=== PATIENT | female | born 1955 | race Caucasian/White ===

== ENCOUNTER 2017-10-29 21:22 | Emergency (ER) | payer OTHER ==
[~2017-10-29] VITALS: Ht 162.6 cm; Wt 58.9 kg
[~2017-10-29 21:22] MED LIST: AZIT250T94 PO; D-ME118S6 PO
[2017-10-29 21:26] VITALS: Ht 162.6 cm; Wt 58.9 kg
[2017-10-29] MEDS ORDERED: KETOROLAC 30 MG INJ IM STA (22:38)
--- NOTE | 2017-10-30 01:01 | ERD ---
ER Documentation Chief Complaint Chief Complaint low back pain extending to left leg x 1 week, denies injury HPI This is a 61-year-old female who presents the emergency department today complaining of left-sided back pain and pain that goes down into her leg. States that she has had this back problem for a long time was told that she has a herniated disc and a nerve problem and she has had an MRI. States she is waiting for authorization for injections for her pain. States she has taken Tylenol and Advil. The leg pain is new. Denies any fevers or chills, loss of bowel or bladder control. ROS All systems reviewed and are negative except as per history of present illness. Medications Home Meds Active Scripts Acetaminophen* (Tylophen*) 500 Mg Capsule, 1 CAP PO Q6H Y for PAIN AND OR ELEVATED TEMP, #30 CAP Prov:DAVID HUSTON PA-C 10/30/17 Tramadol HCl (Tramadol HCl) 50 Mg Tablet, 50 MG PO Q4 Y for PAIN, #20 TAB Prov:DAVID HUSTON PA-C 10/30/17 Dextromethorphan Hb-Promethazine Hcl (Promethazine DM Syrup) 180 Ml Syrup, 10 ML PO Q6H Y for COUGH, #120 OZ Prov:IVAN WHITNEY MD 12/26/15 Azithromycin* (Zithromax*) 250 Mg Tablet, 250 MG PO .ZPACK DIRECTED, #6 TAB TAKE 500 MG (2 TABS) THE FIRST DAY THEN 250 MG (1 TAB) DAYS 2-5 Prov:IVAN WHITNEY MD 12/26/15 Reported Medications [None] No Conflict Check 08/30/15 Allergies Allergies: Coded Allergies: Sulfa (Sulfonamide Antibiotics) (Unverified Allergy, Unknown, 08/30/15) BREATHING PROBLEMS PMhx/Soc History of Surgery: Yes (L BREASE BIOPSY, UMB HERNIA REPAIR, VAG BIOPSY) Anesthesia Reaction: No Hx Neurological Disorder: No Hx Respiratory Disorders: No Hx Cardiac Disorders: Yes (cholesterol NO MED BORDERLINE) Hx Psychiatric Problems: No Hx Miscellaneous Medical Probl: No Hx Alcohol Use: No Hx Substance Use: No Hx Tobacco Use: No Smoking Status: Never smoker Physical Exam Vitals Vital Signs Date Time Temp Pulse Resp B/P Pulse Ox O2 Delivery O2 Flow Rate FiO2 10/29/17 21:26 98.2 83 20 160/90 100 Physical Exam Const: NAD Head: Atraumatic Eyes: Normal Conjunctiva ENT: Normal External Ears, Nose and Mouth. Neck: Full range of motion..~ No meningismus. Resp: Clear to auscultation bilaterally Cardio: Regular rate and rhythm, no murmurs Abd: Soft, non tender, non distended. Normal bowel sounds Skin: No petechiae or rashes Back: Lumbar spine no midline tenderness. Left-sided paraspinal tenderness. Positive straight leg raise. Pulses 2+. Distal neurovascularly intact. No erythema or warmth, calf tenderness. Ext: No cyanosis, or edema Neur: Awake and alert Psych: Normal Mood and Affect Results 24 hrs Current Medications Medications (Trade) Dose Ordered Sig/Jane Route PRN Reason Start Time Stop Time Status Last Admin Dose Admin Ketorolac Tromethamine (Toradol) 30 mg ONCE STAT IM 10/29/17 22:38 10/29/17 22:39 DC 10/29/17 22:44 DIAGNOSTIC IMAGING REPORT Patient: NOEMY JONES : 1955 Age: 61 Sex: F MR #: [id number] DOS: 10/30/17 0000 Ordering MD: DAVID HUSTON PA-C Location: [facility] Room/Bed: PROCEDURE: ULTRASOUND LEFT LOWER EXTREMITY VENOUS CLINICAL INDICATION: 61-year-old female with left lower extremity pain. TECHNIQUE: Multiple sonographic images of the left lower extremity deep venous system was obtained utilizing grayscale, color-flow, compressive sonography and doppler imaging with augmentation. The images were reviewed on a PACS workstation. COMPARISON: None. FINDINGS: There is normal compressibility and flow within the left common femoral, deep femoral, superficial femoral, popliteal, posterior tibial and peroneal veins. IMPRESSION: No sonographic evidence for left lower extremity deep venous thrombosis. .Rafael Lassiter MD, Date Time Electronically viewed and signed by .Rafael Lassiter MD, MD on 10/30/2017 00:59 .M/ CC: DAVID HUSTON PA-C Procedures/MDM Is a 61-year-old female who presents the emergency department today complaining of chronic back pain. Patient has had an MRI and has a known history of a herniated disc and nerve problems". Patient indicated that this pain in her leg is been ongoing for the past 8 days and this is new and she has never had this before. Patient is afebrile and otherwise well-appearing. She has no calf pain or erythema or warmth however given new onset of this leg pain and patient's age I did obtain a Doppler ultrasound Ultrasound shows no sonographic evidence for left lower extremity deep venous thrombosis. Symptoms at this time is consistent with leg pain likely by her chronic back pain and herniated disks. This is most likely radicular symptoms caused by herniated disc and nerve problems. Patient is afebrile and otherwise well- appearing. Low suspicion for cauda equina or abscess. She has no loss of bowel or bladder control. Given Toradol here in the emergency department and pain improved. She will be given a prescription for tramadol, Tylenol for home patient indicated she was waiting for authorization for injections for her back. 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 At this time the patient is stable for discharge and outpatient management. Patient should follow up with their PCP in the next 1-2 days. They may return to the emergency department sooner for any persistent or worsening of symptoms. Patient understood and agreed with the plan. Departure Diagnosis: Primary Impression: Pain of left leg Additional Impression: Back pain Back pain location: low back pain Chronicity: chronic Back pain laterality : left Sciatica presence: with sciatica Sciatica laterality: sciatica of left side Qualified Code: M54.42 - Chronic left-sided low back pain with left- sided sciatica Condition: Fair DAVID HUSTON PA-C Oct 30, 2017 01:01
[2017-10-30] MEDS ORDERED: TRAM50TA2 PO (01:02)
[2017-10-30] MEDS ORDERED: ACET500C5 PO (01:03)
[2017-10-30] MEDS ORDERED: HYDROCODONE/APAP (5/325) TAB PO ONE (01:30)
== END 2017-10-30 01:20 | disposition home or self-care (01) ==
LOC: FTE 21:22
DX: M79.605 Pain in left leg (principal); M54.42 Lumbago with sciatica, left side
CPT/HCPCS: 93971; 96372; J1885; Z7502; Z7610

== ENCOUNTER 2017-12-28 16:31 | Emergency (ER) | END 2017-12-28 21:04 | disposition home or self-care (01) ==

== ENCOUNTER 2019-09-09 14:46 | Emergency (ER) | payer OTHER ==
[~2019-09-09] VITALS: Ht 152.4 cm; Wt 61.2 kg
[~2019-09-09 14:46] MED LIST changes: +ACET500C5 PO; +AZIT250T PO; -AZIT250T94 PO; +BENZ200C68 PO; +FLUT9.9S NASAL; +TRAM50TA2 PO
[2019-09-09 14:54] VITALS: BP 148/73; PULSE 85; RESP 16; Ht 152.4 cm; Wt 61.2 kg
== END 2019-09-09 15:00 | disposition home or self-care (01) ==
LOC: E/R 14:46
DX: J40 Bronchitis, not specified as acute or chronic (principal)
CPT/HCPCS: 71045